=== PATIENT | female | born 1960 | race Asian ===

== ENCOUNTER 2019-03-28 10:17 | Emergency (ER) | payer OTHER ==
[~2019-03-28] VITALS: Ht 147.3 cm; Wt 61.4 kg
[2019-03-28] MEDS ORDERED: IBUPROFEN 600 MG TABLET PO ONE (11:15)
[2019-03-28 12:41] VITALS: BP 153/77
== END 2019-03-28 12:43 | disposition home or self-care (01) ==
LOC: EMS 10:22
DX: S20.211A Contusion of right front wall of thorax, initial encounter (principal); S50.811A Abrasion of right forearm, initial encounter; W19.XXXA Unspecified fall, initial encounter; Y93.89 Activity, other specified; Y92.89 Other specified places as the place of occurrence of the external cause; Y99.0 Civilian activity done for income or pay